=== PATIENT | female | born 1990 | race Caucasian/White ===

== ENCOUNTER 2019-11-15 12:20 | Emergency (ER) | payer OTHER ==
[2019-11-15] MEDS ORDERED: Sodium Chloride 0.9% 1000 ML 1,000 ML IV SCH (12:45)
[2019-11-15] MEDS ORDERED: Sodium Chloride 0.9% 1000 ML 1,000 ML ONE (12:48)
[2019-11-15 13:06] LABS: INR 1.52 (0.8-3.0); PROTIME 17.3 SECONDS (9.95-12.35)
[2019-11-15 13:08] LABS: Absolute Neutrophil Ct (ANC) 4.23 (1.4-6.9); BASOPHIL % 0.6 % (0.0-0.4); Basophil (Absolute #) 0.05 (0-0.4); Eosinophil (Absolute #) 0.16 (0-0.5); Hemoglobin 13.2 gm/dl (12.0-16.0); Lymphocyte (Absolute #) 3.15 (1.0-4.6); Lymphocytes % 39.1 % (24.0-44.0); Mean Cell Volume 93.2 fl (78-100); Mean Corpuscular Hgb Concent. 32.2 g/dl (32-36); Monocyte (Absolute #) 0.47 (0.0-1.3); Monocytes % 5.8 % (0.0-12.0); Neutrophil % 52.5 % (36.0-66.0); Platelet Count 324 K/mm3 (150-450); Red Cell Distribution Width 12.5 % (11.5-14.0); White Blood Count 8.1 K/mm3 (4.0-10.5)
[2019-11-15 13:09] LABS: ALBUMIN 3.7 g/dL (3.5-5.0); ALKALINE PHOSPHATASE 89 U/L (38-126); BLOOD UREA NITROGEN 9 mg/dL (7-17); CHLORIDE 110 mmol/L (98-107); Calcium 9.3 mg/dL (8.4-10.2); Carbon Dioxide 21 mmol/L (22-30); Glucose 95 mg/dL (74-106); PTT 41.5 SECONDS (25.3-37.0); Potassium 3.8 mmol/L (3.5-5.1); SGOT/AST 34 U/L (14-36); SGPT/ALT 23 U/L (0-35); SODIUM 139 mmol/L (137-145); Total Protein 7.3 g/dL (6.3-8.2)
[2019-11-15 14:20] VITALS: BP 122/78; PULSE 72; O2SAT 99
--- NOTE | 2019-11-15 14:39 | ERPHSYRPT ---
- History of Present Illness Time Seen by Provider: 11/15/19 12:30 Patient Subjective Stated Complaint: PT states "I am short of breath. I have a blood clot in my left leg." Triage Nursing Assessment: PT presented alert and oriented X 3, skin pwd Pt able to move herself from cot to bed, pt has intermittant cough, pt slightly tachypneic. PT has walking boot on her left foot. PT stated she has a blood clot in her left leg as of 2 days ago. Physician History: Is a 28-year-old female who presents with a complaint of shortness of breath. She had surgery to her left ankle on 28 October. She was discovered to have a DVT by Doppler 48 hours ago and started on Xarelto. She was doing well until this morning when she noticed some shortness of breath. She does have a history of asthma. Timing/Duration: today Activities at Onset: none Severity of Dyspnea-Max: mild Severity of Dyspnea-Current: mild Possible Cause: occasional episodes Allergies/Adverse Reactions: No Known Drug Allergies Allergy (Verified 11/15/19 12:33) Home Medications: Buspirone HCl [Buspar] 10 mg PO BID 11/15/19 [History] Escitalopram Oxalate [Lexapro] 5 mg PO DAILY 11/15/19 [History] Hydroxyzine HCl 25 mg [Atarax 25 mg] 25 mg PO Q6-8HPRN PRN 11/15/19 [History] Quetiapine Fumarate 25 mg [Seroquel 25 MG] 50 mg PO HS 11/15/19 [History] Rivaroxaban [Xarelto] 15 mg PO DAILY 11/15/19 [History] Tramadol HCl 50 mg [Ultram 50 mg] 50 mg PO BID 11/15/19 [History] Hx Tetanus, Diphtheria Vaccination/Date Given: Yes Hx Influenza Vaccination/Date Given: Yes Hx Pneumococcal Vaccination/Date Given: No Immunizations Up to Date: Yes Travel Risk - International Travel Have you traveled outside of the country in past 3 weeks: No - Coronavirus Screening Are you exhibiting any of the following symptoms?: Yes Symptoms: Cough: New Onset Close contact with a COVID-19 positive Pt in past 14-21 Days: No - Review of Systems Constitutional: No Fever, No Chills Eyes: No Symptoms Ears, Nose, & Throat: No Symptoms Respiratory: Dyspnea, No Cough Cardiac: No Chest Pain, No Edema, No Syncope Abdominal/Gastrointestinal: No Abdominal Pain, No Nausea, No Vomiting, No Diarrhea Genitourinary Symptoms: No Dysuria Musculoskeletal: No Back Pain, No Neck Pain Skin: No Rash Neurological: No Dizziness, No Focal Weakness, No Sensory Changes Psychological: No Symptoms Endocrine: No Symptoms All Other Systems: Reviewed and Negative - Past Medical History Pertinent Past Medical History: Yes Neurological History: No Pertinent History ENT History: No Pertinent History Cardiac History: No Pertinent History Respiratory History: Asthma Endocrine Medical History: No Pertinent History Musculoskeletal History: No Pertinent History GI Medical History: No Pertinent History History: No Pertinent History Psycho-Social History: Anxiety Female Reproductive Disorders: No Pertinent History - Past Surgical History Past Surgical History: Yes Other Surgical History: t&a. legament repair left ankle - Social History Smoking Status: Former smoker Exposure to second hand smoke: Yes Drug Use: none Patient Lives Alone: No Significant Family History: no pertinent family hx - Female History Hx Last Menstrual Period: 11/11/2019 Hx Now: No - Nursing Vital Signs Nursing Vital Signs: Initial Vital Signs Temperature 98.4 F 11/15/19 12:21 Pulse Rate 92 H 11/15/19 12:21 Respiratory Rate 28 H 11/15/19 12:21 Blood Pressure 122/60 11/15/19 12:21 O2 Sat by Pulse Oximetry 97 11/15/19 12:21 Pain Scale Pain Intensity 0 - Physical Exam General Appearance: mild distress, alert Eye Exam: PERRL/EOMI Neck Exam: normal inspection, supple Respiratory Exam: normal breath sounds, lungs clear Cardiovascular/Chest Exam: normal heart sounds, regular rate/rhythm Abdominal/Gastrointestinal Exam: soft, No tenderness, No distention, No mass Extremity Exam: non-tender, normal range of motion, normal inspection, no calf tenderness, no pedal edema Neurologic Exam: alert, oriented x 3, cooperative, dry cleaning checker II-XII nml as tested, sensation nml, No motor deficits Skin Exam: normal color, warm, No dry SpO2 Interpretation: normal SpO2: 99 O2 Delivery: Room Air - Course Nursing assessment & vital signs reviewed: Yes EKG Interpreted by Me: RATE (88), Sinus Rhythm, NORMAL AXIS, NORMAL INTERVALS, NORMAL QRS, Non-specific ST Changes - CT Exams Chest CT Interpretation: Negative (Negative for PE.) Ordered Tests: Active Orders 24 hr Category Date Time Status Mop Machine Operator STAT Care 11/15/19 12:45 Active EKG-ER Only STAT Care 11/15/19 12:44 Active IV Insertion STAT Care 11/15/19 12:44 Active CHEST WITH CONTRAST [CT] Stat Exams 11/15/19 12:46 Ordered CBC W DIFF Stat Lab 11/15/19 12:56 Completed CMP Stat Lab 11/15/19 12:56 Completed D-DIMER QUANTITATIVE Stat Lab 11/15/19 12:56 Completed PROTIME WITH INR Stat Lab 11/15/19 12:56 Completed PTT Stat Lab 11/15/19 12:56 Completed Medication Summary Generic Name Dose Route Start Last Admin Trade Name Freq PRN Reason Stop Dose Admin Sodium Chloride 1,000 mls @ 100 mls/hr 11/15/19 12:45 11/15/19 12:50 Sodium Chloride 0.9% 1000 Ml IV 12/15/19 12:44 100 mls/hr .Q10H ANA Administration Lab/Rad Data: Laboratory Result Diagrams 11/15/19 12:56 11/15/19 12:56 Laboratory Results 11/15/19 11/15/19 11/15/19 Range/Units 12:56 12:56 12:56 WBC 8.1 (4.0-10.5) K/mm3 RBC 4.40 (4.1-5.4) M/mm3 Hgb 13.2 (12.0-16.0) gm/dl Hct 41.0 (35-47) % MCV 93.2 (78-100) fl MCH 30.0 (26-32) pg MCHC 32.2 (32-36) g/dl RDW 12.5 (11.5-14.0) % Plt Count 324 (150-450) K/mm3 MPV 10.0 (7.5-11.0) fl Gran % 52.5 (36.0-66.0) % Eos # (Auto) 0.16 (0-0.5) Absolute Lymphs (auto) 3.15 (1.0-4.6) Absolute Monos (auto) 0.47 (0.0-1.3) Lymphocytes % 39.1 (24.0-44.0) % Monocytes % 5.8 (0.0-12.0) % Eosinophils % 2.0 (0.00-5.0) % Basophils % 0.6 (0.0-0.4) % Absolute Granulocytes 4.23 (1.4-6.9) Basophils # 0.05 (0-0.4) PT 17.3 H (9.95-12.35) SECONDS INR 1.52 (0.8-3.0) APTT 41.5 H (25.3-37.0) SECONDS D-Dimer 522 H* (215-500) ng/mL Sodium 139 (137-145) mmol/L Potassium 3.8 (3.5-5.1) mmol/L Chloride 110 H (98-107) mmol/L Carbon Dioxide 21 L (22-30) mmol/L Anion Gap 11.0 (5-15) MEQ/L BUN 9 (7-17) mg/dL Creatinine 0.50 L (0.52-1.04) mg/dL Estimated GFR > 60.0 ML/MIN Glucose 95 (74-106) mg/dL Calcium 9.3 (8.4-10.2) mg/dL Total Bilirubin 0.80 (0.2-1.3) mg/dL AST 34 (14-36) U/L ALT 23 (0-35) U/L Alkaline Phosphatase 89 (38-126) U/L Serum Total Protein 7.3 (6.3-8.2) g/dL Albumin 3.7 (3.5-5.0) g/dL - Progress Progress: improved Air Movement: good Blood Culture(s) Obtained: No Antibiotics given: No - Departure Departure Disposition: Home Clinical Impression: Dyspnea Condition: Stable Critical Care Time: No Referrals: KELLY MYERS [Primary Care Provider] - Instructions: Shortness of Breath (Dyspnea) (DC)
--- NOTE | 2019-11-15 18:59 | XRAY ---
Indication: Elevated d-dimer. Status post left ankle surgery October 29, 2019. Multiple contiguous axial images obtained through the chest using 100 cc Isovue 370 contrast and PE protocol. Comparison: None There is satisfactory opacification of the pulmonary arteries to include the lobar and segmental branches. No filling defect or pulmonary embolus. Heart is borderline enlarged. Aorta is normal in course and caliber. No pathologic mediastinal/hilar lymphadenopathy. Lungs demonstrates minimal bibasilar dependent atelectasis. No suspicious pulmonary mass, infiltrate, or effusion. Bony thorax intact. Limited upper abdomen demonstrates fatty liver. Impression: 1. Negative pulmonary embolus. No acute cardiopulmonary abnormalities. 2. Fatty liver. Comment: Preliminary interpretation was made by [facility]. No critical discrepancy.
== END 2019-11-15 14:55 | disposition home or self-care (01) ==
LOC: ED 12:20
DX: R06.00 Dyspnea, unspecified (principal)
CPT/HCPCS: 36000; 36415; 71260; 80053; 82962; 85025; 85379; 85610; 85730; 93005; 93041; 96360; 96361; 99284

== ENCOUNTER 2020-07-06 19:00 | Emergency (ER) | payer OTHER ==
--- NOTE | 2020-07-06 19:02 | ERPHSYRPT ---
- History of Present Illness Time Seen by Provider: 07/06/20 19:01 Source: patient Exam Limitations: no limitations Physician History: This is a 29-year-old white female who is 12 weeks . This is her third . She has been having difficulty with vomiting of during this compared to her prior pregnancies. Her primary care doctor/obst etrician is Dr. Adam. The patient received a prescription for Reglan which has helped tremendously in controlling her nausea and vomiting. However, today at approximately 6 PM, she began having intractable vomiting. She has not yet taken her Reglan. She usually takes this at night. She stated that she thought she would wait for another hour. However and the vomiting persisted and she was starting to get dizzy. Patient does not have a headache. She does not have chest pain. She does not have abdominal pain. She has had no diarrhea. She has not had a fever. She has not had a cough. She has no myalgias or arthralgias. Timing/Duration: today Severity: mild (To moderate. Currently now mild) Character of Deficits: none Deficits: no difficulties Baseline/Normal Cognition: alert oriented x 3 Current Cognition: alert oriented x 3 Baseline Gait: walks w/o assistance Associated Symptoms: denies symptoms Allergies/Adverse Reactions: No Known Drug Allergies Allergy (Verified 07/06/20 19:08) Home Medications: Albuterol Sulfate [Proventil Hfa] 6.7 gm IH UD 06/20/20 [History] Vits W-Ca,Fe,FA(<1Mg) [] 1 each PO DAILY 06/20/20 [History] Doxylamine Succinate [Sleep Aid] 25 mg PO HS 07/06/20 [History] Hx Tetanus, Diphtheria Vaccination/Date Given: Yes Hx Influenza Vaccination/Date Given: Yes Hx Pneumococcal Vaccination/Date Given: No Travel Risk - International Travel Have you traveled outside of the country in past 3 weeks: No - Coronavirus Screening Are you exhibiting any of the following symptoms?: No Close contact with a COVID-19 positive Pt in past 14-21 Days: No - Review of Systems Constitutional: No Symptoms Eyes: No Symptoms Ears, Nose, & Throat: No Symptoms Respiratory: No Symptoms Cardiac: No Symptoms Abdominal/Gastrointestinal: Nausea, Vomiting Genitourinary Symptoms: No Symptoms Musculoskeletal: No Symptoms Skin: No Symptoms Neurological: Dizziness Psychological: No Symptoms Endocrine: No Symptoms Hematologic/Lymphatic: No Symptoms Immunological/Allergic: No Symptoms All Other Systems: Reviewed and Negative - Past Medical History Pertinent Past Medical History: Yes Neurological History: No Pertinent History ENT History: No Pertinent History Cardiac History: No Pertinent History Respiratory History: No Pertinent History Endocrine Medical History: No Pertinent History Musculoskeletal History: No Pertinent History GI Medical History: No Pertinent History History: No Pertinent History Psycho-Social History: No Pertinent History Female Reproductive Disorders: No Pertinent History - Past Surgical History Past Surgical History: Yes Neuro Surgical History: No Pertinent History Cardiac: No Pertinent History Respiratory: No Pertinent History Gastrointestinal: No Pertinent History Genitourinary: No Pertinent History Other Surgical History: 2011 T&A, October 2019 left ankle had anchors and wires placed from old sports injuries, - Social History Smoking Status: Former smoker Exposure to second hand smoke: Yes Drug Use: none Patient Lives Alone: No Significant Family History: no pertinent family hx - Nursing Vital Signs Nursing Vital Signs: Initial Vital Signs Temperature 97.5 F 07/06/20 19:09 Pulse Rate 109 H 07/06/20 19:09 Respiratory Rate 20 07/06/20 19:09 Blood Pressure 124/93 07/06/20 19:09 O2 Sat by Pulse Oximetry 100 07/06/20 19:09 Pain Scale Pain Intensity 0 - Joe Coma Scale Best Eye Response (Ossian): (4) open spontaneously Best Verbal Response (Joe): (5) oriented Best Motor Response ([place]ssian): (6) obeys commands [place] Total: 15 - Physical Exam General Appearance: no apparent distress, alert, anxiety, obese Eye Exam: bilateral eye: normal inspection, PERRL, EOMI Ears, Nose, Throat Exam: normal ENT inspection, moist mucous membranes Neck Exam: normal inspection, non-tender, supple, full range of motion Respiratory: normal breath sounds, lungs clear, airway intact, No chest tenderness, No respiratory distress Cardiovascular: regular rate/rhythm, normal heart sounds, normal peripheral pulses Gastrointestinal: soft, normal bowel sounds, No tenderness Pelvic Exam: not done Rectal Exam: not done Extremity Exam: normal inspection, normal range of motion, pelvis stable Mental Status: alert, oriented x 3, cooperative rectifier operator Exam: normal hearing, normal speech, PERRL, tongue midline Coordination/Gait: normal gait, normal cerebellar function Motor/Sensory: no motor deficit, no sensory deficit Skin Exam: normal color, warm, dry SpO2 Interpretation: normal O2 Delivery: Room Air - Course Nursing assessment & vital signs reviewed: Yes Ordered Tests: Active Orders 24 hr Category Date Time Status AMYLASE Stat Lab 07/06/20 19:30 Completed CBC W DIFF Stat Lab 07/06/20 19:30 Completed CMP Stat Lab 07/06/20 19:30 Completed HCG, Quantitative (Inhouse) Stat Lab 07/06/20 19:30 Completed LIPASE Stat Lab 07/06/20 19:30 Completed Lactic Acid Stat Lab 07/06/20 19:23 Ordered UA W/RFX UR CULTURE Stat Lab 07/06/20 19:26 Completed Medication Summary Discontinued Medications Generic Name Dose Route Start Last Admin Trade Name Freq PRN Reason Stop Dose Admin Famotidine 40 mg 07/06/20 19:23 07/06/20 19:34 Pepcid 20 Mg Vial IV 07/06/20 19:24 40 mg STAT ONE Administration Famotidine Confirm 07/06/20 19:28 Pepcid 20 Mg Vial Administered 07/06/20 19:29 Dose 20 mg IV .STK-MED ONE Famotidine Confirm 07/06/20 19:33 Pepcid 20 Mg Vial Administered 07/06/20 19:34 Dose 20 mg IV .STK-MED ONE Sodium Chloride 1,000 mls @ 999 mls/hr 07/06/20 19:23 07/06/20 19:32 Sodium Chloride 0.9% 1000 Ml IV 07/06/20 20:23 999 mls/hr .Q1H1M STA Administration Sodium Chloride Confirm 07/06/20 19:28 Sodium Chloride 0.9% 1000 Ml Administered 07/06/20 19:29 Dose 1,000 mls @ ud .ROUTE .STK-MED ONE Metoclopramide HCl 10 mg 07/06/20 19:41 07/06/20 20:02 Reglan 10 Mg/2 Ml IV 07/06/20 19:42 10 mg STAT ONE Administration Metoclopramide HCl Confirm 07/06/20 20:01 Reglan 10 Mg/2 Ml Administered 07/06/20 20:02 Dose 10 mg .ROUTE .STK-MED ONE Ondansetron HCl 4 mg 07/06/20 19:23 07/06/20 19:34 Zofran 4 Mg/2 Ml Vial IV 07/06/20 19:24 4 mg STAT ONE Administration Ondansetron HCl Confirm 07/06/20 19:28 Zofran 4 Mg/2 Ml Vial Administered 07/06/20 19:29 Dose 4 mg .ROUTE .STK-MED ONE Lab/Rad Data: Laboratory Result Diagrams 07/06/20 19:30 07/06/20 19:30 Laboratory Results 07/06/20 07/06/20 07/06/20 Range/Units 19:30 19:30 19:30 WBC 12.5 H (4.0-10.5) K/mm3 RBC 4.52 (4.1-5.4) M/mm3 Hgb 13.4 (12.0-16.0) gm/dl Hct 41.9 (35-47) % MCV 92.7 (78-100) fl MCH 29.6 (26-32) pg MCHC 32.0 (32-36) g/dl RDW 13.1 (11.5-14.0) % Plt Count 328 (150-450) K/mm3 MPV 9.8 (7.5-11.0) fl Gran % 67.1 H (36.0-66.0) % Eos # (Auto) 0.12 (0-0.5) Absolute Lymphs (auto) 3.31 (1.0-4.6) Absolute Monos (auto) 0.66 (0.0-1.3) Lymphocytes % 26.4 (24.0-44.0) % Monocytes % 5.3 (0.0-12.0) % Eosinophils % 1.0 (0.00-5.0) % Basophils % 0.2 (0.0-0.4) % Absolute Granulocytes 8.42 H (1.4-6.9) Basophils # 0.02 (0-0.4) Sodium 134 L (137-145) mmol/L Potassium 3.8 (3.5-5.1) mmol/L Chloride 103 (98-107) mmol/L Carbon Dioxide 23 (22-30) mmol/L Anion Gap 11.4 (5-15) MEQ/L BUN 9 (7-17) mg/dL Creatinine 0.39 L (0.52-1.04) mg/dL Estimated GFR > 60.0 ML/MIN Glucose 86 (74-106) mg/dL Calcium 9.4 (8.4-10.2) mg/dL Total Bilirubin 0.30 (0.2-1.3) mg/dL AST 24 (14-36) U/L ALT 20 (0-35) U/L Alkaline Phosphatase 85 (38-126) U/L Serum Total Protein 7.5 (6.3-8.2) g/dL Albumin 4.1 (3.5-5.0) g/dL Amylase 76 (30-110) U/L Lipase 59 (23-300) U/L Beta HCG, Quant 51227 mIU/ml Urine Color (YELLOW) Urine Appearance (CLEAR) Urine pH (5-6) Ur Specific [place] (1.005-1.025) Urine Protein (Negative) Urine Ketones (NEGATIVE) Urine Blood (0-5) [place]/ul Urine Nitrite (NEGATIVE) Urine Bilirubin (NEGATIVE) Urine Urobilinogen (0-1) mg/dL Ur Leukocyte Esterase (NEGATIVE) Urine WBC (Auto) (0-5) /HPF Urine RBC (Auto) (0-2) /HPF U Epithel Cells (Auto) (FEW) /HPF Urine Bacteria (Auto) (NEGATIVE) /HPF Urine Mucus (Auto) (NEGATIVE) /HPF Urine Culture Reflexed (NO) Urine Glucose (NEGATIVE) mg/dL 07/06/20 Range/Units 19:26 WBC (4.0-10.5) K/mm3 RBC (4.1-5.4) M/mm3 Hgb (12.0-16.0) gm/dl Hct (35-47) % MCV (78-100) fl MCH (26-32) pg MCHC (32-36) g/dl RDW (11.5-14.0) % Plt Count (150-450) K/mm3 MPV (7.5-11.0) fl Gran % (36.0-66.0) % Eos # (Auto) (0-0.5) Absolute Lymphs (auto) (1.0-4.6) Absolute Monos (auto) (0.0-1.3) Lymphocytes % (24.0-44.0) % Monocytes % (0.0-12.0) % Eosinophils % (0.00-5.0) % Basophils % (0.0-0.4) % Absolute Granulocytes (1.4-6.9) Basophils # (0-0.4) Sodium (137-145) mmol/L Potassium (3.5-5.1) mmol/L Chloride (98-107) mmol/L Carbon Dioxide (22-30) mmol/L Anion Gap (5-15) MEQ/L BUN (7-17) mg/dL Creatinine (0.52-1.04) mg/dL Estimated GFR ML/MIN Glucose (74-106) mg/dL Calcium (8.4-10.2) mg/dL Total Bilirubin (0.2-1.3) mg/dL AST (14-36) U/L ALT (0-35) U/L Alkaline Phosphatase (38-126) U/L Serum Total Protein (6.3-8.2) g/dL Albumin (3.5-5.0) g/dL Amylase (30-110) U/L Lipase (23-300) U/L Beta HCG, Quant mIU/ml Urine Color YELLOW (YELLOW) Urine Appearance SLIGHTLY CLOUDY (CLEAR) Urine pH 5.0 (5-6) Ur Specific [place] 1.027 (1.005-1.025) Urine Protein NEGATIVE (Negative) Urine Ketones NEGATIVE (NEGATIVE) Urine Blood NEGATIVE (0-5) [place]/ul Urine Nitrite NEGATIVE (NEGATIVE) Urine Bilirubin NEGATIVE (NEGATIVE) Urine Urobilinogen NEGATIVE (0-1) mg/dL Ur Leukocyte Esterase NEGATIVE (NEGATIVE) Urine WBC (Auto) 3-5 (0-5) /HPF Urine RBC (Auto) NONE (0-2) /HPF U Epithel Cells (Auto) RARE (FEW) /HPF Urine Bacteria (Auto) NONE (NEGATIVE) /HPF Urine Mucus (Auto) SLIGHT (NEGATIVE) /HPF Urine Culture Reflexed NO (NO) Urine Glucose NEGATIVE (NEGATIVE) mg/dL - Progress Progress: improved, re-examined Progress Note: 07/06/20 19:46 I chose not to perform an EKG. Patient was fine and without dizziness until she had several episodes of vomiting in a row. On my examination, she has no further dizziness. That has resolved. She does not have any chest pain. I believe her dizziness is not related to any acute intracranial abnormality or a cardiac abnormality. - Departure Departure Disposition: Home Clinical Impression: Dizziness, Vomiting affecting Condition: Stable Critical Care Time: No Referrals: KELLY MYERS [Primary Care Provider] - Additional Instructions: Drink plenty of fluids. Take your medication as prescribed. Call your meter tester primary tomorrow morning to make arrangements for follow-up appointment and for further management.
[2020-07-06] MEDS ORDERED: Pepcid 20 MG VIAL IV ONE ×3 (19:23→19:33)
[2020-07-06] MEDS ORDERED: Sodium Chloride 0.9% 1000 ML 1,000 ML IV STA (19:23)
[2020-07-06] MEDS ORDERED: Zofran 4 MG/2 ML VIAL IV ONE (19:23)
[2020-07-06] MEDS ORDERED: Zofran 4 MG/2 ML VIAL ONE (19:28)
[2020-07-06] MEDS ORDERED: Sodium Chloride 0.9% 1000 ML 1,000 ML ONE (19:28)
[2020-07-06 19:37] LABS: Absolute Neutrophil Ct (ANC) 8.42 (1.4-6.9); BASOPHIL % 0.2 % (0.0-0.4); Basophil (Absolute #) 0.02 (0-0.4); Eosinophil (Absolute #) 0.12 (0-0.5); Hematocrit 41.9 % (35-47); Hemoglobin 13.4 gm/dl (12.0-16.0); Lymphocyte (Absolute #) 3.31 (1.0-4.6); Lymphocytes % 26.4 % (24.0-44.0); Mean Cell Volume 92.7 fl (78-100); Mean Corpuscular Hemoglobin 29.6 pg (26-32); Mean Platelet Volume 9.8 fl (7.5-11.0); Monocyte (Absolute #) 0.66 (0.0-1.3); Monocytes % 5.3 % (0.0-12.0); Neutrophil % 67.1 % (36.0-66.0); Platelet Count 328 K/mm3 (150-450); Red Blood Count 4.52 M/mm3 (4.1-5.4); Red Cell Distribution Width 13.1 % (11.5-14.0); White Blood Count 12.5 K/mm3 (4.0-10.5)
[2020-07-06 19:40] LABS: Appearance SLIGHTLY CLOUDY (CLEAR); Bilirubin NEGATIVE (NEGATIVE); Blood NEGATIVE Ery/ul (0-5); Epithelial Cells RARE /HPF (FEW); Glucose NEGATIVE (NEGATIVE); Ketones NEGATIVE (NEGATIVE); Leukocyte Esterase NEGATIVE (NEGATIVE); Mucus SLIGHT /HPF (NEGATIVE); Nitrite NEGATIVE (NEGATIVE); Protein,Urine Dip NEGATIVE (Negative); Specific Gravity 1.027 (1.005-1.025); Urobilinogen NEGATIVE mg/dL (0-1)
[2020-07-06] MEDS ORDERED: Reglan 10 MG/2 ML IV ONE (19:41)
[2020-07-06 19:45] LABS: ALBUMIN 4.1 g/dL (3.5-5.0); ALKALINE PHOSPHATASE 85 U/L (38-126); AMYLASE 76 U/L (30-110); ANION GAP 11.4 MEQ/L (5-15); BLOOD UREA NITROGEN 9 mg/dL (7-17); CHLORIDE 103 mmol/L (98-107); Calcium 9.4 mg/dL (8.4-10.2); Carbon Dioxide 23 mmol/L (22-30); Creatinine 1 0.39 mg/dL (0.52-1.04); EST GLOMERULAR FILTRATION RATE > 60.0 ML/MIN; Glucose 86 mg/dL (74-106); LIPASE 59 U/L (23-300); Potassium 3.8 mmol/L (3.5-5.1); SGOT/AST 24 U/L (14-36); SGPT/ALT 20 U/L (0-35); SODIUM 134 mmol/L (137-145); Total Protein 7.5 g/dL (6.3-8.2)
[2020-07-06] MEDS ORDERED: Reglan 10 MG/2 ML ONE (20:01)
[2020-07-06 20:04] VITALS: BP 126/71
[2020-07-06 20:47] VITALS: PULSE 89; O2SAT 99
== END 2020-07-06 20:50 | disposition home or self-care (01) ==
LOC: ED 19:00
DX: O21.0 Mild hyperemesis gravidarum (principal); Z3A.12 12 weeks gestation of pregnancy; R42 Dizziness and giddiness
CPT/HCPCS: 36000; 36415; 80053; 81001; 82150; 83605; 83690; 84702; 85025; 96360; 96374; 99284; J2405

== ENCOUNTER 2020-08-15 10:47 | Emergency (ER) | payer OTHER ==
--- NOTE | 2020-08-15 10:52 | ERPHSYRPT ---
- History of Present Illness Time Seen by Provider: 08/15/20 10:51 Source: patient Exam Limitations: no limitations Physician History: This is a 29-year-old obese white female who is 18 weeks . This is the patient's third . She is a patient of Dr. Adam. She is known to have a single intrauterine based on her ultrasound that was performed on 07/20/2020. Patient denies vaginal bleeding. She had some pelvic/suprapubic cramping that began last evening. It was intermittent. Patient states that she did engage in sexual intercourse yesterday prior to any of her symptoms. She had an episode early this morning that was very strong and she felt that it may be contraction. Patient was told to come to the emergency room for evaluation. Patient symptoms as described above have completely resolved. She has no abdominal/suprapubic pain or sensation of contractions. Patient has no flank pain. She has no hematuria or dysuria. We contacted at the obstetric department. They said they would not do anything with this patient unless she was over 20 weeks and having the symptoms. It was recommended to me that the patient undergo an ultrasound to evaluate for heart rate and cervical length.. Patient denies shortness of breath. She denies chest pain. She has no fever. She has no flulike symptoms. She has not had any vomiting or diarrhea. Patient has a full anatomic OB ultrasound scheduled for 08/17/2020. This is in 2 days. Timing/Duration: yesterday Severity: mild Modifying Factors: Improves With: nothing Associated Symptoms: denies symptoms Allergies/Adverse Reactions: No Known Drug Allergies Allergy (Verified 08/15/20 11:20) Home Medications: Albuterol Sulfate [Proventil Hfa] 6.7 gm IH UD 06/20/20 [History] Vits W-Ca,Fe,FA(<1Mg) [] 1 each PO DAILY 06/20/20 [History] Doxylamine Succinate [Sleep Aid] 25 mg PO HS 07/06/20 [History] Hx Tetanus, Diphtheria Vaccination/Date Given: Yes Hx Influenza Vaccination/Date Given: Yes Hx Pneumococcal Vaccination/Date Given: No Travel Risk - International Travel Have you traveled outside of the country in past 3 weeks: No - Coronavirus Screening Are you exhibiting any of the following symptoms?: No Close contact with a COVID-19 positive Pt in past 14-21 Days: No - Vaccine Status Have you recieved a Covid-19 vaccination: No - Review of Systems Constitutional: No Symptoms Eyes: No Symptoms Ears, Nose, & Throat: No Symptoms Respiratory: No Symptoms Cardiac: No Symptoms Abdominal/Gastrointestinal: Abdominal Pain (Described as suprapubic cramping? Contraction.) Genitourinary Symptoms: No Symptoms, No Dysuria, No Frequency, No Hematuria, No Flank Pain, No Vaginal Bleeding Musculoskeletal: No Symptoms Skin: No Symptoms Neurological: No Symptoms Psychological: No Symptoms Endocrine: No Symptoms Hematologic/Lymphatic: No Symptoms Immunological/Allergic: No Symptoms All Other Systems: Reviewed and Negative - Past Medical History Pertinent Past Medical History: Yes Neurological History: No Pertinent History ENT History: No Pertinent History Cardiac History: No Pertinent History Respiratory History: No Pertinent History Endocrine Medical History: No Pertinent History Musculoskeletal History: No Pertinent History GI Medical History: No Pertinent History History: No Pertinent History Psycho-Social History: No Pertinent History Female Reproductive Disorders: No Pertinent History - Past Surgical History Past Surgical History: Yes Neuro Surgical History: No Pertinent History Cardiac: No Pertinent History Respiratory: No Pertinent History Gastrointestinal: No Pertinent History Genitourinary: No Pertinent History Other Surgical History: 2011 T&A, October 2019 left ankle had anchors and wires placed from old sports injuries, - Social History Smoking Status: Former smoker Exposure to second hand smoke: Yes Drug Use: none Patient Lives Alone: No Significant Family History: no pertinent family hx - Nursing Vital Signs Nursing Vital Signs: Initial Vital Signs Temperature 98.1 F 08/15/20 11:00 Pulse Rate 118 H 08/15/20 11:00 Blood Pressure 125/85 08/15/20 11:00 O2 Sat by Pulse Oximetry 97 08/15/20 11:00 Pain Scale Pain Intensity 3 - Physical Exam General Appearance: no apparent distress, alert, anxiety, obese Eye Exam: PERRL/EOMI, eyes nml inspection Ears, Nose, Throat Exam: normal ENT inspection, moist mucous membranes Neck Exam: normal inspection, non-tender, supple, full range of motion Respiratory Exam: normal breath sounds, lungs clear, airway intact, No chest tenderness, No respiratory distress Cardiovascular Exam: regular rate/rhythm, normal peripheral pulses, tachycardia (Mild) Gastrointestinal/Abdomen Exam: soft, normal bowel sounds, No tenderness Pelvic Exam: not done Rectal Exam: not done Back Exam: normal inspection, normal range of motion, No CVA tenderness, No vertebral tenderness Extremity Exam: normal inspection, normal range of motion, pelvis stable Neurologic Exam: alert, oriented x 3, cooperative, rubber thread spooler II-XII nml as tested, normal mood/affect, nml cerebellar function, nml station & gait, sensation nml Skin Exam: normal color, warm, dry Lymphatic Exam: No adenopathy SpO2 Interpretation: normal O2 Delivery: Room Air - Course Nursing assessment & vital signs reviewed: Yes Ordered Tests: Active Orders 24 hr Category Date Time Status OB LIMITED [US] Stat Exams 08/15/20 11:13 Completed UA W/RFX UR CULTURE Stat Lab 08/15/20 12:30 Completed Lab/Rad Data: Laboratory Results 08/15/20 Range/Units 12:30 Urine Color YELLOW (YELLOW) Urine Appearance SLIGHTLY CLOUDY (CLEAR) Urine pH 6.0 (5-6) Ur Specific [place] 1.026 (1.005-1.025) Urine Protein 30 (Negative) Urine Ketones TRACE (NEGATIVE) Urine Blood NEGATIVE (0-5) [place]/ul Urine Nitrite NEGATIVE (NEGATIVE) Urine Bilirubin NEGATIVE (NEGATIVE) Urine Urobilinogen 2 (0-1) mg/dL Ur Leukocyte Esterase NEGATIVE (NEGATIVE) Urine WBC (Auto) NONE (0-5) /HPF Urine RBC (Auto) NONE (0-2) /HPF U Epithel Cells (Auto) RARE (FEW) /HPF Urine Bacteria (Auto) NONE (NEGATIVE) /HPF Urine Mucus (Auto) SLIGHT (NEGATIVE) /HPF Urine Culture Reflexed NO (NO) Urine Glucose NEGATIVE (NEGATIVE) mg/dL - Progress Progress: improved, re-examined Progress Note: 08/15/20 13:14 Medical decision making: This patient was having intermittent "contractions". She is 18 weeks . Patient has not had any vomiting or diarrhea. She has not had a fever. She has no vaginal bleeding. Her urinalysis does not show any urinary tract infection. There is only trace ketones present. Her heart rate was slightly increased upon admission into the emergency department. However the most recent heart rate is 100 bpm at the time of discharge. I did speak with Dr. Adam, the patient's primary doctor and mate relief. I reviewed the findings of heart rate at 144 bpm and a normal cervical length of 4.0 cm on today's OB ultrasound (limited). Dr. Adam stated that at 18 weeks are no medications she can provide the patient. Obstetrical department states that there is no need to monitor her for contractions at 18 we eks gestation. This was told to Dr. Adam. Patient is to increase her intake of fluids orally. She is to keep her appointment with ultrasound scheduled later this week. 08/15/20 13:18 Discussed with : Bryant Counseled pt/family regarding: lab results, diagnosis, need for follow-up, rad results - Departure Departure Disposition: Home Clinical Impression: Andrew Cabrera' contraction Condition: Stable Critical Care Time: No Referrals: KELLY MYERS [Primary Care Provider] - Additional Instructions: Drink plenty of fluids. Take all your medications as prescribed. Keep your OB ultrasound appointment that are scheduled later this week. Return to the emergency department if symptoms worsen.
--- NOTE | 2020-08-15 11:54 | XRAY ---
Indication: Contractions. Cervical length. Limited OB ultrasound performed to evaluate cervical length. Single viable intrauterine with heart rate 144 BPM. Cervix is closed measuring 4.0 cm.
[2020-08-15 12:58] LABS: Appearance SLIGHTLY CLOUDY (CLEAR); Bilirubin NEGATIVE (NEGATIVE); Blood NEGATIVE Ery/ul (0-5); Epithelial Cells RARE /HPF (FEW); Glucose NEGATIVE (NEGATIVE); Ketones TRACE (NEGATIVE); Leukocyte Esterase NEGATIVE (NEGATIVE); Mucus SLIGHT /HPF (NEGATIVE); Nitrite NEGATIVE (NEGATIVE); Protein,Urine Dip 30 (Negative); Specific Gravity 1.026 (1.005-1.025); Urobilinogen 2 mg/dL (0-1)
[2020-08-15 13:12] VITALS: BP 129/67; PULSE 91; O2SAT 94
== END 2020-08-15 13:42 | disposition home or self-care (01) ==
LOC: ED 10:47
DX: O47.9 False labor, unspecified (principal); Z3A.18 18 weeks gestation of pregnancy
CPT/HCPCS: 76815; 81001; 99283